=== PATIENT | female | born 1980 | race Caucasian/White ===

== ENCOUNTER → 2017-04-24 | Outpatient (CLI) | payer OTHER ==
--- NOTE | 2017-04-24 16:40 | CT ---
EXAMINATION TYPE: CT chest w con DATE OF EXAM: 04/24/2017 COMPARISON: NONE HISTORY: Anterior Chest discomfort CT DLP: 126.4 mGycm. Automated Exposure Control for Dose Reduction was Utilized. TECHNIQUE: CT scan of the thorax is performed following with IV Contrast, patient injected with 100 mL of Omnipaque 300. FINDINGS: LUNGS: The lungs are grossly clear, there is no concerning parenchymal mass or nodule identified. T here is no pleural effusion or pneumothorax seen. The tracheobronchial tree is patent. MEDIASTINUM: There are no greater than 1 cm hilar or mediastinal lymph nodes. Trace pericardial fluid is identified. OTHER: Posterior to the left superior renal cortex and spleen there is a rounded density that appears to be contiguous with the vasculature representing a varix on coronal images series 6 image 49 throu gh [id number]. IMPRESSION: 1. No acute intrathoracic pathology. 2. Rounded retroperitoneal density is favored to represent a venous varix. Short-term follow-up CT ab domen could be performed to ensure stability in 3 months.
== END | disposition home or self-care (01) ==
LOC: RADCTMAIN 15:49
PROVIDERS: ATTEND Family Medicine
DX: R91.8 Other nonspecific abnormal finding of lung field (principal)
CPT/HCPCS: 71260; Q9967

== ENCOUNTER → 2017-07-17 | Outpatient (CLI) | payer OTHER ==
--- NOTE | 2017-07-17 17:04 | CT ---
EXAMINATION TYPE: CT abdomen wo con DATE OF EXAM: 07/17/2017 COMPARISON: Chest CT 04/24/2017 HISTORY: 36-year-old female Abnormal chest x-ray, intraabdominal mass/lump TECHNIQUE: Contiguous axial scanning of the abdomen without IV contrast. Coronal and sagittal reconst ructions performed. CT DLP: 351 mGycm Automated exposure control for dose reduction was used. FINDINGS: The heart is normal size without pericardial effusion. Lung bases clear without pleural effusion. Noncontrast appearance of the liver, gallbladder, adrenal glands, spleen, and pancreas show no gross body. There are 2 punctate nonobstructive 2 mm calculi in the mid and lower pole of the right kidney. In ad dition, there is a fat density lesion measuring 9 mm anterior lower pole right kidney. Punctate 2 mm nonobstructive calculus lower pole left kidney. Stable 1.3 cm soft tissue density nodule interposed between the spleen and left kidney which appears contiguous with a vessel, axial image extending most suggestive of a varix as mentioned on prior CT. No dilated small bowel, free fluid, or free air. Scattered nonenlarged mesenteric lymph nodes through out the abdomen. Mild stool burden without pericolonic inflammatory change. Bones: No osseous destructive process. IMPRESSION: 1. A COUPLE PUNCTATE NONOBSTRUCTIVE 2 MM CALCULI IN EACH KIDNEY. 2. STABLE 1.3 CM SOFT TISSUE NODULE INTERPOSED BETWEEN THE SPLEEN AND LEFT KIDNEY IS CONTIGUOUS WITH A VESSEL AND MOST COMPATIBLE WITH A SMALL VENOUS VARIX. 3. 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
== END | disposition home or self-care (01) ==
LOC: RADCTMAIN 15:36
PROVIDERS: ATTEND Family Medicine
DX: N20.0 Calculus of kidney (principal); N28.89 Other specified disorders of kidney and ureter; D73.89 Other diseases of spleen
CPT/HCPCS: 74150

== ENCOUNTER → 2019-11-04 | Outpatient (CLI) | payer OTHER ==
--- NOTE | 2019-11-13 09:09 | MM ---
Reason for exam: screening (asymptomatic). Last mammogram was performed 5 years and 2 months ago. History: Took hormonal contraceptives for 4 years. Physical Findings: A clinical breast exam by your physician is recommended on an annual basis and results should be correlated with mammographic findings. MG Screening Mammo w CAD Bilateral CC and MLO view(s) were taken. Prior study comparison: September 15, 2014, mammogram, performed at [facility]. The breast tissue is heterogeneously dense. This may lower the sensitivity of mammography. There are benign appearing vascular calcifications in the right breast. There is no discrete abnormality. ASSESSMENT: Negative, BI-RAD 1 RECOMMENDATION: Routine screening mammogram of both breasts in 1 year.
== END | disposition home or self-care (01) ==
LOC: RADMAMWWP 16:11
PROVIDERS: ATTEND Obstetrics & Gynecology
DX: Z12.31 Encounter for screening mammogram for malignant neoplasm of breast (principal)
CPT/HCPCS: 77067